=== PATIENT | female | born 1980 | race Caucasian/White ===

== ENCOUNTER 2018-07-09 13:48 | Observation (INO) ==
--- NOTE | 2018-07-09 14:38 | Emergency Department Note ---
Disposition Clinical Impression: Sinus tachycardia, Intractable back pain Sacral fracture, closed Qualifiers: Encounter type: subsequent encounter Zone of sacrum fracture: unspecified portion of sacrum Fracture healing: with routine healing Qualified Code(s): S32.10XD - Unspecified fracture of sacrum, subsequent encounter for fracture with routine healing Disposition: Admitted As Inpatient Condition: Fair Referrals: Liliana Byrne CNP [Primary Care Provider] - Arcenio Koehler MD [Partnered Physician] - Forms: ED Satisfaction Letter, Work/School Release Time of Disposition: 15:16 Back Pain HPI - General Chief Complaint: ED Back Pain/Injury Stated Complaint: Low back injury needs pain meds Time Seen by Provider: 07/09/18 14:06 Source: patient, family Mode of arrival: private vehicle Limitations: no limitations Nursing Notes Reviewed: Yes Vital Signs Reviewed: Yes - History of Present Illness Pt Subjective Complaint: back pain, back injury Onset (ago): day(s) Duration: constant Similar Symptoms Previously: No Location: sacrum, Other (coccyx) Pain Severity: severe Quality: aching Radiation: none Improves with: none Worsens with: walking Context: trauma (sledding accident 4 days ago - went down a hill, hit a dip and then landed on her back, on a large piece of asphalt ) Associated symptoms: Denies: numbness, weakness, difficulty walking, incontinence of bowel/bladder, fever, chills, abdominal pain, dysuria, hematuria Treatments prior to arrival: cold therapy, other medications (flexeril), prescr iption analgesics, other (was seen at [place], then at & by Ortho, then by Dr. Rodo Lambert Physiatry, then at [facility]. ) - Related Data Home Medications Medication Instructions Recorded Confirmed Cyclobenzaprine [Flexeril] 10 mg PO HS 07/04/18 07/04/18 Oxycodone HCl [Roxybond] 30 mg PO Q4H 07/04/18 07/04/18 Previous Rx's Medication Instructions Recorded Cyclobenzaprine [Flexeril] 10 mg PO TID #21 tablet 07/04/18 Allergies Allergy/AdvReac Type Severity Reaction Status Date / Time Amoxicillin Allergy Difficulty Verified 12/25/17 20:20 Breathing Erythromycin Base Allergy Hives Verified 12/25/17 20:20 ibuprofen Allergy Hypertensio Verified 12/25/17 20:20 n sulfamethoxazole Allergy Hives Verified 12/25/17 20:20 [From Bactrim] trimethoprim [From Bactrim] Allergy Hives Verified 12/25/17 20:20 ketorolac [From Toradol] AdvReac Hypertensio Verified 12/25/17 20:20 n All systems ED: reviewed and negative except as stated. Review of Systems: As Per HPI Constitutional: Denies: fever, chills, weakness Cardiovascular: Denies: chest pain, palpitations, dyspnea on exertion, orthopnea, syncope Respiratory: Denies: cough, dyspnea, hemoptysis Gastrointestinal: Reports: constipation ("Chronic"). Denies: abdominal pain, nausea, vomiting, diarrhea Genitourinary: Denies: urgency, dysuria, frequency, hematuria Musculoskeletal: Reports: as per HPI, back pain ("sacrum and coccyx"). Denies: neck pain, joint swelling, arthralgia Integumentary: Denies: abrasion Neurological: Denies: weakness, numbness, paresthesias Hematological/Lymphatic: Denies: easy bleeding, easy bruising Past Medical History - Past Medical History Attestation: Yes The following information was validated with the patient. Source: patient Medical history: Reports: other (Right shoulder pain ) Surgical history: Reports: , cholecystectomy, other (tubal ligation x2) Psychiatric history: Reports: panic disorder [employer] history: Reports: bilateral tubal ligation - Social History Smoking Status: Current every day smoker Smokeless Tobacco Status: No Alcohol use: Reports: none Drug use: Reports: none Physical Exam - General Limitations: no limitations General appearance: alert, in no apparent distress (appears to be in pain) - Head Head exam: atraumatic, normocephalic, normal inspection - Eye Eye exam: Present: normal appearance. Absent: scleral icterus, conjunctival injection, periorbital swelling - ENT ENT exam: mucous membranes moist - Neck Neck exam: Present: normal inspection, full ROM, trachea midline. Absent: tenderness - Chest Chest inspection: Present: normal inspection - Respiratory Respiratory exam: Present: normal lung sounds bilaterally. Absent: respiratory distress - Cardiovascular Cardiovascular exam: Present: normal rhythm, tachycardia, normal heart sounds - Abdominal Exam Abdominal exam: Present: soft, Non-Tender. Absent: distention, guarding, rebound, rigidity, mass - Extremities Exam Extremities exam: Present: normal inspection, normal capillary refill. Absent: tenderness - Neurological Exam Neurological exam: Present: alert, oriented X3, CN II-XII intact, normal gait - Psychiatric Psychiatric exam: Present: normal affect, normal mood - Skin Skin exam: Present: warm, dry, intact, normal color Course Course Narrative: Patient had a sledding accident a few days ago and sustained two fractures - one to the sacrum and one to the coccyx. She is here for pain control. She has been seen by [facility] orthopedist, and physiatry. She was referred to [facility] for eval by Spine Surgery. She had that appointment today. She state s that Dr. Koehler ([facility]) set up the appointment for her and told her that they would be able to determine if her fractures need surgical management. He also told her that he would be able to manage her pain if her fractures do not require surgery. Patient states that she was told today that she would not need surgery. She does have a follow-up appointment with Dr. oKehler, and with her primary care provider next week. She is here because she has run out of pain medication. She states that when she saw the ER physician at [place] on the day of the injury. She was instructed to "double up on her pain medication to help with the pain." She did this for the past several days and now is out of her prescribed pain medication. She takes this for chronic right shoulder pain. The shoulder pain is from a work-related injury and she states that she will be having surgery on it. Review of patient's OAR[facility] report shows that she has only received pain meds from one provider. She received a 30 day supply on June 16. We will treat her pain here in the ED. She will need to contact her PCP for refill as she technically should not be out of meds just yet. Patient has no signs or symptoms concerning for cauda equina syndrome. Neuro exam is normal. Tachycardia is most-likely due to pain and patient states that she has "history of sinus tach." She also states that she is a nurse, thus I feel comfortable that she is accurate about her past medical hx. Patient has follow up arranged. Pain unable to be controlled. Case discussed with Dr. Cuello. He mario's admission. Patient no better after Fentanyl. Nurse reports that patient became very anxious before receiving the fentanyl and her heart rate went up into the 140's. Nurse further states that after they talked about it and the patient's talked to her, patient's heart rate returned to normal. ECG ordered. Heart rate is currently 80. Time is 17:56 Patient resting comfortably. IV discontinued per request of hospitalist. - Reevaluation(s) Reevaluation #1: Patient states that the pain medication is not helping at all. Will try different meds and re-assess. Case discussed with Dr. Cuello. He will eval the patient. Time: 15:19 Reevaluation #2: Dr. Fry recommends pain meds and admission. Patient will be moved to a medical bed. - Consultations Consultation #1: Case discussed with Dr. Landeros - Hospitalist. He requests consult with Dr. Villalobos and labs. Dr. Villalobos pagesirena, labs ordered. Time: 16:15 Consultation #2: Case discussed with Dr. Villalobos. He states that the patient can stay here for pain control and he will consult. Once labs are back will call hospitalist again. Time: 16:30 Vital Signs Temperature 97.9 F 07/09/18 13:50 Pulse Rate 121 07/09/18 13:50 Respiratory Rate 16 07/09/18 13:50 Blood Pressure 149/88 07/09/18 13:50 O2 Sat by Pulse Oximetry 100 07/09/18 13:50 Temperature 97.9 F 07/09/18 13:56 Pulse Rate 141 07/09/18 16:13 Respiratory Rate 20 07/09/18 16:13 Blood Pressure 134/77 07/09/18 16:13 O2 Sat by Pulse Oximetry 99 07/09/18 16:13 Oxygen Delivery Oxygen Delivery Room Air Back Pain/Injury - Medical Records Medical records reviewed: Yes I reviewed the patient's medical records. - Lab Data Lab results reviewed: Yes I reviewed the patient's lab results. Lab results narrative: Laboratory Last Values WBC 8.1 K/mcL (4.3-11.1) 07/09/18 16:16 RBC 4.22 M/mcL (3.82-4.97) 07/09/18 16:16 Hgb 12.7 g/dL (11.5-15.4) 07/09/18 16:16 Hct 38.5 % (35.3-44.9) 07/09/18 16:16 MCV 91.2 fL (83.0-100.0) 07/09/18 16:16 MCH 30.1 pg (28.0-33.3) 07/09/18 16:16 MCHC 33.0 g/dL (31.6-35.5) 07/09/18 16:16 RDW 12.7 % (11.5-14.5) 07/09/18 16:16 Plt Count 226 K/mcL (140-400) 07/09/18 16:16 MPV 10.0 fL (9.4-12.4) 07/09/18 16:16 Immature Gran % 0.2 % (0-4) 07/09/18 16:16 Seg Neutrophils % 57.9 % 07/09/18 16:16 Lymphocytes % 31.2 % 07/09/18 16:16 Monocytes % 8.8 % 07/09/18 16:16 Eosinophils % 1.7 % 07/09/18 16:16 Basophils % 0.2 % 07/09/18 16:16 Neutrophils # 4.7 K/mcL (1.6-8.9) 07/09/18 16:16 Lymphocytes # 2.5 K/mcL (0.6-4.6) 07/09/18 16:16 Monocytes # 0.7 K/mcL (0.0-1.3) 07/09/18 16:16 Eosinophils # 0.1 K/mcL (0.0-0.6) 07/09/18 16:16 Basophils # 0.0 K/mcL (0.0-0.2) 07/09/18 16:16 Sodium 139 mEq/L (136-145) 07/09/18 16:16 Potassium 4.1 mEq/L (3.5-5.1) 07/09/18 16:16 Chloride 114 mEq/L (98-107) H 07/09/18 16:16 Carbon Dioxide 22 mEq/L (23-29) L 07/09/18 16:16 BUN 9 mg/dL (6-20) 07/09/18 16:16 Creatinine 0.71 mg/dL (0.60-1.20) 07/09/18 16:16 Est GFR ( Amer) > 60 (> 60) 07/09/18 16:16 Est GFR (Non-Af Amer) > 60 (> 60) 07/09/18 16:16 BUN/Creatinine Ratio 13 (6-26) 07/09/18 16:16 Glucose 120 mg/dL (70-105) H 07/09/18 16:16 Calculated Osmolality 288 (280-300) 07/09/18 16:16 Calcium 8.5 mg/dL (8.6-10.3) L 07/09/18 16:16 Result diagrams: 07/09/18 16:16 07/09/18 16:16 Lab Results 07/09/18 07/09/18 Range/Units 16:16 16:16 WBC 8.1 (4.3-11.1) K/mcL RBC 4.22 (3.82-4.97) M/mcL Hgb 12.7 (11.5-15.4) g/dL Hct 38.5 (35.3-44.9) % MCV 91.2 (83.0-100.0) fL MCH 30.1 (28.0-33.3) pg MCHC 33.0 (31.6-35.5) g/dL RDW 12.7 (11.5-14.5) % Plt Count 226 (140-400) K/mcL MPV 10.0 (9.4-12.4) fL Immature Gran % 0.2 (0-4) % Seg Neutrophils % 57.9 % Lymphocytes % 31.2 % Monocytes % 8.8 % Eosinophils % 1.7 % Basophils % 0.2 % Neutrophils # 4.7 (1.6-8.9) K/mcL Lymphocytes # 2.5 (0.6-4.6) K/mcL Monocytes # 0.7 (0.0-1.3) K/mcL Eosinophils # 0.1 (0.0-0.6) K/mcL Basophils # 0.0 (0.0-0.2) K/mcL Sodium 139 (136-145) mEq/L Potassium 4.1 (3.5-5.1) mEq/L Chloride 114 H (98-107) mEq/L Carbon Dioxide 22 L (23-29) mEq/L BUN 9 (6-20) mg/dL Creatinine 0.71 (0.60-1.20) mg/dL Est GFR ( Amer) > 60 (> 60) Est GFR (Non-Af Amer) > 60 (> 60) BUN/Creatinine Ratio 13 (6-26) Glucose 120 H (70-105) mg/dL Calculated Osmolality 288 (280-300) Calcium 8.5 L (8.6-10.3) mg/dL - Radiology Data Radiology results reviewed: Yes I reviewed the patient's radiology results. CT from [place] reviewed
[2018-07-09] MEDS ORDERED: Ondansetron ODT 4 MG TAB.RAPDIS SL ONE (14:43)
[2018-07-09] MEDS ORDERED: *HR* HYDROmorphone (PF) 1 MG/ML SYRINGE IM ONE (14:43)
[2018-07-09] MEDS ORDERED: 0.9 % Sodium Chloride 1,000 ML IVC ONE (15:20)
[2018-07-09] MEDS ORDERED: *HR* FentaNYL (PF) 100 MCG/2 ML VIAL IVP ONE (15:25)
--- NOTE | 2018-07-09 15:40 | Emergency Department Note ---
Disposition Clinical Impression: Coccyx pain Disposition: Admitted As Inpatient Condition: Fair Referrals: Liliana Byrne CNP [Primary Care Provider] - Arcenio Koehler MD [Partnered Physician] - Forms: ED Satisfaction Letter, Work/School Release General Adult HPI - General Chief complaint: ED Back Pain/Injury Stated complaint: Low back injury needs pain meds Time Seen by Provider: 07/09/18 14:06 Source: patient, family Mode of arrival: private vehicle Limitations: no limitations Nursing Notes Reviewed: Yes Vital Signs Reviewed: Yes - History of Present Illness HPI Narrative: ED attending attestation note: I examined this patient and my medical decision-making was reviewed with the emergency medicine physician enrichment assistant Aparna Evans. I agree with the d ocumented findings, disposition and treatment plan as described except to the extent set forth below. Briefly: 37-year-old female involved in a sledding injury. Patient was evaluated in our side emergency department where she was diagnosed with sacral and coccygeal fracture. On which may or may not require orthopedic intervention but not emergently. She follow-up in the outpatient sports medicine clinic and was told that it did not necessarily require operative management at least emergently. Patient is normally on pain management for her right shoulder injury. She is taking Percocet 30 mg twice a day she is when out of this medicine. Because of the increased pain from her back and she opted her dose per her primary care provider's recommendations. Patient is afebrile stable vital signs she is in moderate pain issue will be managed with parenteral narcotics here she will be admitted for pain control and she will have orthopedic consultation after being admitted to the hospitalist service. Admission disposition pending. Pain Scale: 8 - Related Data Home Medications Medication Instructions Recorded Confirmed Cyclobenzaprine [Flexeril] 10 mg PO HS 07/04/18 07/04/18 Oxycodone HCl [Roxybond] 30 mg PO Q4H 07/04/18 07/04/18 Previous Rx's Medication Instructions Recorded Cyclobenzaprine [Flexeril] 10 mg PO TID #21 tablet 07/04/18 Allergies Allergy/AdvReac Type Severity Reaction Status Date / Time Amoxicillin Allergy Difficulty Verified 12/25/17 20:20 Breathing Erythromycin Base Allergy Hives Verified 12/25/17 20:20 ibuprofen Allergy Hypertensio Verified 12/25/17 20:20 n sulfamethoxazole Allergy Hives Verified 12/25/17 20:20 [From Bactrim] trimethoprim [From Bactrim] Allergy Hives Verified 12/25/17 20:20 ketorolac [From Toradol] AdvReac Hypertensio Verified 12/25/17 20:20 n Constitutional: Denies: fever, chills, weakness Cardiovascular: Denies: chest pain, palpitations, dyspnea on exertion, orthopnea, syncope Respiratory: Denies: cough, dyspnea, hemoptysis Gastrointestinal: Reports: constipation ("Chronic"). Denies: abdominal pain, nausea, vomiting, diarrhea Genitourinary: Denies: urgency, dysuria, frequency, hematuria Musculoskeletal: Reports: as per HPI, back pain ("sacrum and coccyx"). Denies: neck pain, joint swelling, arthralgia Integumentary: Denies: abrasion Neurological: Denies: weakness, numbness, paresthesias Hematological/Lymphatic: Denies: easy bleeding, easy bruising Past Medical History - Past Medical History Medical history: Reports: other (Right shoulder pain ) Surgical history: Reports: , cholecystectomy, other (tubal ligation x2) Psychiatric history: Reports: panic disorder [employer] history: Reports: bilateral tubal ligation - Social History Smoking Status: Current every day smoker Smokeless Tobacco Status: No Alcohol use: Reports: none Drug use: Reports: none Physical Exam - General Limitations: no limitations General appearance: alert, in no apparent distress (appears to be in pain) Course Vital Signs Temperature 97.9 F 07/09/18 13:50 Pulse Rate 121 07/09/18 13:50 Respiratory Rate 16 07/09/18 13:50 Blood Pressure 149/88 07/09/18 13:50 O2 Sat by Pulse Oximetry 100 07/09/18 13:50 Temperature 97.9 F 07/09/18 13:56 Pulse Rate 121 07/09/18 13:56 Respiratory Rate 16 07/09/18 13:56 Blood Pressure 149/88 07/09/18 13:56 O2 Sat by Pulse Oximetry 100 07/09/18 13:56 Oxygen Delivery Oxygen Delivery Room Air
[2018-07-09 17:04] LABS: Basophils % 0.2 %; Eosinophils # 0.1 K/mcL (0.0-0.6); Eosinophils % 1.7 %; Hematocrit 38.5 % (35.3-44.9); Hemoglobin 12.7 g/dL (11.5-15.4); Immature Granulocytes % 0.2 % (0-4); Lymphocytes # 2.5 K/mcL (0.6-4.6); Lymphocytes % 31.2 %; Mean Corpuscular Hemoglobin 30.1 pg (28.0-33.3); Mean Corpuscular Volume 91.2 fL (83.0-100.0); Monocytes # 0.7 K/mcL (0.0-1.3); Monocytes % 8.8 %; Neutrophils # 4.7 K/mcL (1.6-8.9); Platelet Count 226 K/mcL (140-400); Red Blood Count 4.22 M/mcL (3.82-4.97); Red Cell Distribution Width 12.7 % (11.5-14.5); Segmented Neutrophils % 57.9 %
[2018-07-09 17:17] LABS: BUN/Creatinine Ratio 13 (6-26); Blood Urea Nitrogen 9 mg/dL (6-20); Calcium 8.5 mg/dL (8.6-10.3); Carbon Dioxide 22 mEq/L (23-29); Chloride 114 mEq/L (98-107); Glucose 120 mg/dL (70-105); Osmolality,Calculated 288 (280-300); Potassium 4.1 mEq/L (3.5-5.1); Sodium 139 mEq/L (136-145); eGFR For Non-African Americans > 60 (> 60)
[2018-07-09] MEDS ORDERED: *HR* HYDROmorphone (PF) 1 MG/ML SYRINGE IVP ONE ×2 (17:44→18:54)
[2018-07-09] MEDS ORDERED: OXYCODONE Oral CONC 10 MG/0.5 ML ORAL.SYG SL ONE (18:17)
--- NOTE | 2018-07-09 18:22 | Internal Med History&Physical ---
Date of Encounter: 07/09/18 Time of Encounter: 18:49 Internal Medicine - H&P: HPI History of present illness: Ms. Crawley is a 37 year old female with recent sacral and coccyx minimal displaced fractures presents for worsening pain. She had a sledding accident 5 days ago and was seen by [facility] at that time. She was referred to [facility] for evaluation by Spine Surgery. Per patient, that appointment was today and states that she was told she does not need surgery. There is scheduled follow-up appointments but patient has ran out of pain medication and so decided to come in. She takes chronic pain medication for shoulder pain. Lumbar pain is located at sacrum and has not progressed since accident. She has some left leg tingling, but denies bowel/bladder issues, denies saddle anesthesia. Denies lower extremity weakness. In the ED she had basic labs that were unremarkable. She did have episode of asymptomatic tachycardia with HR 120-140s, which resolved without any medical intervention. She is chest pain free, denies shortness of breath. She has known history of sinus tachycardia. Past Med Surg Social Fam HX - Past Medical History Medical history: other (Right shoulder pain ) Additional medical history: chronic pvcs. right shoulder pain. 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 work Psychiatric history: panic disorder - Past Surgical History Surgical History: , cholecystectomy, other (tubal ligation x2) Additional surgical history: leep procedure, liver biopsy, CYST REMOVED FROM RT HAND - Social History Smoking Status: Current every day smoker Smokeless Tobacco Status: No Alcohol use: none Drug use: none Internal Medicine - H&P: Meds Cyclobenzaprine [Flexeril] 10 mg PO HS 07/04/18 [History] Cyclobenzaprine [Flexeril] 10 mg PO TID #21 tablet 07/04/18 [Rx] Oxycodone HCl [Roxybond] 30 mg PO Q4H 07/04/18 [History] Allergy/AdvReac Type Severity Reaction Status Date / Time Amoxicillin Allergy Difficulty Verified 12/25/17 20:20 Breathing Erythromycin Base Allergy Hives Verified 12/25/17 20:20 ibuprofen Allergy Hypertensio Verified 12/25/17 20:20 n sulfamethoxazole Allergy Hives Verified 12/25/17 20:20 [From Bactrim] trimethoprim [From Bactrim] Allergy Hives Verified 12/25/17 20:20 ketorolac [From Toradol] AdvReac Hypertensio Verified 12/25/17 20:20 n All Systems PM: A 10-system review of systems was performed and is negative for pertinent findings except as documented above in the HPI. - Constitutional Vitals: Temp Pulse Resp BP Pulse Ox 97.9 F 141 20 134/77 99 07/09/18 13:56 07/09/18 16:13 07/09/18 16:13 07/09/18 16:13 07/09/18 16:13 General appearance: Present: A&O X 3, no acute distress Exam: . - Head Head exam: Present: atraumatic, normocephalic - Eye Eye exam: Present: PERRL, conjuntiva pink, sclera anicteric Pupils: Present: PERRL - Neck Neck exam general surgery: Present: supple, trachea midline. Absent: lymphadenopathy - Respiratory Respiratory exam: Present: CTAB. Absent: accessory muscle use, rales, rhonchi, wheezes - Cardiovascular Cardiovascular exam: Present: RRR, +S1, +S2. Absent: diastolic murmur, gallop, rubs, systolic murmur - GI/Abdominal GI/Abdominal exam: Present: normal bowel sounds, soft, no peritoneal signs. Absent: distended, tenderness - Rectal Rectal exam: Present: deferred - Extremities Exam Extremities exam: Present: warm, radial pulses palpable and symmetrical. Absent: calf tenderness, cyanotic, pedal edema - Back Exam Back exam: Present: normal inspection, paraspinal tenderness, vertebral tenderness. Absent: CVA tenderness (L), CVA tenderness (R), full ROM (limited exam due to pain), muscle spasm, rash noted - Neurological Exam Neurological exam: Present: CN II-XII intact, oriented X3, reflexes normal, no focal deficits, strengths equal and symetr throughout. Absent: pronater drift, facial droop, speech deficit - Skin Skin exam: Present: dry, intact Internal Med - H&P Results - Labs CBC & Chem 7: 07/09/18 16:16 07/09/18 16:16 Labs: Short CBC 07/09/18 Range/Units 16:16 WBC 8.1 (4.3-11.1) K/mcL Hgb 12.7 (11.5-15.4) g/dL Hct 38.5 (35.3-44.9) % Plt Count 226 (140-400) K/mcL Neutrophils # 4.7 (1.6-8.9) K/mcL BMP 07/09/18 16:16 Sodium 139 Potassium 4.1 Chloride 114 H Carbon Dioxide 22 L BUN 9 Creatinine 0.71 Glucose 120 H Calcium 8.5 L - Assessment and plan (1) Intractable back pain Current Visit: Yes Status: Acute Assessment and plan: Patient has known history of recent mildly displaced fracture of lower sacrum and coccyx on 07/04/17. She is being followed in outpatient setting with pain medication that patient states is refractory to pain medication. - Obtain repeat CT to eval if any worsening of fracture - Pain control with sL oxycodone prn. - Ortho consulted in ED, recommendations appreciated. (2) Sacral fracture, closed Current Visit: Yes Status: Acute Assessment and plan: Plan as above. Qualifiers: Encounter type: subsequent encounter Zone of sacrum fracture: unspecified portion of sacrum Fracture healing: with routine healing Qualified Code(s): S32.10XD - Unspecified fracture of sacrum, subsequent encounter for fracture with routine healing (3) Sinus tachycardia Current Visit: Yes Status: Acute Assessment and plan: Patient has known history of sinus tachycardia Echocardiogram from 2014 showed unremarkable. Patient at bedside HR was NSR at 80s bpm EKG in ED reviewed, was NSR again with HR in 80s, no ST/T wave changes. Likely pain related, but if this reoccurs, will obtain Echo. - Check TSH, UDS - Lopressor 5 mg IV prn HR > 100. - Time Spent With Patient Total time spent is greater than 50% in coordination of care (as documented) at patient's floor/unit and/or counseling patient:
[2018-07-09 18:25] LABS: Bilirubin,Urine Negative (Negative); Blood,Urine Negative (Negative); Clarity,Urine Clear (Clear); Color,Urine Yellow (Yellow); Glucose,Urine (UA) Normal (Normal); Ketones,Urine Negative (Negative); Leukocyte Esterase,Urine Negative (Negative); Nitrite,Urine Negative (Negative); Protein,Urine Negative (Neg-Trace); Specific Gravity,Urine 1.018 (1.010-1.025); Urobilinogen,Urine Normal (Normal)
[2018-07-09] MEDS ORDERED: Naloxone 0.4 MG/ML INJ IVP PRN (18:25)
[2018-07-09] MEDS ORDERED: traMADol 50 MG TABLET PO PRN (18:40)
[2018-07-09] MEDS ORDERED: *HR* OxyCODONE Immed Rel 5 MG TABLET PO PRN (18:40)
[2018-07-09] MEDS ORDERED: *HR* Metoprolol 5 MG/5 ML VIAL IVP PRN (18:45)
[2018-07-09] MEDS ORDERED: *HR* HYDROmorphone 2 MG/ML SYRINGE ONE (19:00)
[2018-07-09 19:35] LABS: Amphetamine Screen,Urine Negative ng/mL (Cutoff=1000); Barbiturate Screen,Urine Negative ng/mL (Cutoff=200); Benzodiazepines Screen,Urine Negative ng/mL (Cutoff=200); Cannabinoid Screen,Urine Negative ng/mL (Cutoff = 50); Cocaine Screen,Urine Negative ng/mL (Cutoff= 300); Opiate Screen,Urine Positive ng/mL (Cutoff=300); Phencyclidine Screen,Urine Negative ng/mL (Cutoff=25)
[2018-07-09] MEDS: *HR* OxyCODONE Immed Rel 5 MG TABLET PO PRN (20:52)
[2018-07-10] MEDS: *HR* OxyCODONE Immed Rel 5 MG TABLET PO PRN ×2 (03:30→09:23)
[2018-07-10 08:28] LABS: Thyroid Stimulating Hormone 2.201 mcIU/mL (0.340-5.600)
--- NOTE | 2018-07-10 10:38 | Discharge Summary ---
<Herber Tomlinson - Last Filed: 07/10/18 11:58> - NOTES TO OUTPATIENT PROVIDER Notes to Outpatient Provider: Ms. Crawley was admitted to the hospital on 07/09 for worsening pain related to her recent sacral and coccyx fractures. She was in a sledding incident approximately 1 week ago. Repeat lumbar spine CT was negative. Orthopedic surgery was consulted and recommended follow up this next week. At time of discharge pt was able to ambulate throughout the hallways with a walker. Pt was discharged with 3 days supply of Oxycodone 30mg. Pt was also noted to have sinus tachycardia intermittently during admission with HR as high as 141. EKGs showed normal sinus rhythm with no ST segment changes. TSH was within no rmal limits. Likely pain related. Recommend follow up with PCP, if persistent may need follow up echo. Orders not resulted at time of discharge: Pending orders 07/09/18 17:48 ECG 12 lead ECG [ECG] Stat Date of Encounter: 07/10/18 Time of Encounter: 10:33 - Discharge Diagnosis (1) Sacral fracture, closed Priority: Secondary Status: Acute Assessment and Plan: Plan as above Qualifiers: Encounter type: subsequent encounter Zone of sacrum fracture: unspecified portion of sacrum Fracture healing: with routine healing Qualified Code(s): S32.10XD - Unspecified fracture of sacrum, subsequent encounter for fracture with routine healing (2) Sinus tachycardia Priority: Secondary Status: Acute Assessment and Plan: Patient has known history of sinus tachycardia Echocardiogram from 2014 was unremarkable. At bedside HR was NSR at 80s bpm EKG from ED reviewed: NSR with HR in 80s, no ST/T segment changes. TSH within normal limits UDS significant only for opioids which is appropriate with recent pain meds for fractures Likely related to pain Follow up with PCP (3) Intractable back pain Priority: Primary Status: Acute Assessment and Plan: Patient has known history of recent mildly displaced fracture of lower sacrum and coccyx on 07/04/17 Currently being followed in outpatient setting with pain medication Pt states pain is refractory to pain medication Repeat Lumbar spine CT was negative Pt able to ambulate throughout hallways with walker Ortho surgery consulted - recommended outpatient follow up early next week [facility] report reviewed Discharged with 3 day supply of Oxycodone 30mg Q4HR PRN for pain Hospital course: Ms. Crawley is a 37 year old female who was admitted to the hospital on 07/09 for worsening pain related to her recent sacral and coccyx fractures. She was in a sledding incident approximately [address] of the pelvis on 07/04 was significant for a mildly displaced fractures of both the sacrum and coccyx. Pt was discharged home from ED with pain medications. She returned to the ED on 07/09 for intractable pain despite pain medications. Repeat lumbar spine CT was negative. Orthopedic surgery was consulted and recommended follow up this next week. At time of discharge pt was able to ambulate throughout the hallways with a walker. Pt was discharged with 3 days supply of Oxycodone 30mg. Pt was also noted to have sinus tachycardia intermittently during admission with HR as high as 141. EKGs showed normal sinus rhythm with no ST segment changes. TSH was within normal limits. Likely pain related. Recommend follow up with PCP, if persistent may need follow up echo. Discharge discussed with: patient, family, nurse, philatelic consultant - Time Spent with Patient Total time spent providing and/or coordinating discharge services: - Discharge Medications Prescriptions: Oxycodone HCl [Roxybond] 30 mg PO Q4H 3 Days #18 tablet.orl Home Medications: Cyclobenzaprine [Flexeril] 10 mg PO HS 07/04/18 [History] Cyclobenzaprine [Flexeril] 10 mg PO TID #21 tablet 07/04/18 [Rx] Oxycodone HCl [Roxybond] 30 mg PO Q4H 3 Days #18 tablet.orl 07/10/18 [Rx] Allergies/Adverse Reactions: Allergy/AdvReac Type Severity Reaction Status Date / Time Amoxicillin Allergy Difficulty Verified 12/25/17 20:20 Breathing Erythromycin Base Allergy Hives Verified 12/25/17 20:20 ibuprofen Allergy Hypertensio Verified 12/25/17 20:20 n sulfamethoxazole Allergy Hives Verified 12/25/17 20:20 [From Bactrim] trimethoprim [From Bactrim] Allergy Hives Verified 12/25/17 20:20 ketorolac [From Toradol] AdvReac Hypertensio Verified 12/25/17 20:20 n Date of admission: 07/09/18 17:50 Primary care physician: Liliana Bryne Consults: 07/09/18 19:07 Consult to Orthopedic Surgery [CONS] Routine Consulting Provider: [facility] Reason for Consult: back pain Call Completed: Yes Discharging clinician: Herber Tomlinson - Constitutional Vitals: Temp Pulse Resp BP Pulse Ox 98.3 F 90 14 129/83 98 07/10/18 07:53 07/10/18 07:53 07/10/18 07:53 07/10/18 07:53 07/10/18 07:53 General appearance: Present: cooperative, mild distress, A&O X 3, answers questions appropriately Exam: General: well developed, well nourished female in mild distress due to pain Head: normocephalic and atraumatic Eyes: PERRL, EOMI, sclera anicteric, conjunctiva pink Neck: supple, trachea midline Lungs: CTA bilaterally. non-labored breathing. no wheezes, rales, or rhonchi Heart: RRR +S1 +S2 no murmurs, clicks, or rubs Extremities: warm, radial pulses palpable and symmetrical. no edema or cyanosis Neuro: A&OX3. no focal deficits. no speech difficulty or abnormality Skin: warm, dry, intact - Patient Status Disposition: Home, Self-Care Condition: Fair Functional capacity at discharge: uses cane/walker Overall status at discharge: patient is progressing back to baseline - Discharge Instructions Follow Up With: Liliana Byrne CNP [Primary Care Provider] - Surendra Villalobos Jr, MD [Partnered Physician] - Additional Instructions: Follow-up appointments: If there is not an appointment listed below, please call your physician and schedule a follow-up appointment. If you have congestive heart failure and your symptoms return, make an appointment with your physician. Medication List: Carry an up to date list of medications you are taking at all time. We have given you an updated medication list including any new medications that you have been prescribed. Please provide that list to your primary provider Symptoms: If your condition changes or you experience any of the following symptoms, notify your physician immediately: Unusual or worsening pain, fever, persistent nausea and vomiting, bleeding, increase in swelling (especially in your legs), sudden weight gain, extreme dizziness, chest pain, increased drainage or redness from a wound or incision. Go to the emergency department if you experience a problem with breathing. Weights: If you have a history of swelling or shortness of breath, weigh yourself daily and notify your physician if you have a weight gain of two or more pounds in one day or 5 or more pounds in a week. If you experience any of the warning signs for stroke: Sudden numbness or weakness of the face, arm or leg; especially on one side of the body, sudden confusion, trouble speaking or understanding, sudden trouble seeing in one or both eyes, sudden trouble walking, dizziness, loss of balance or coordination, sudden sever headache with no cause; Call 911 or go to the emergency room. Stroke is a medical emergency. Some risk factors for stroke: Age, cigarette smoking, diabetes, excessive alcohol consumption, family history, high blood pressure, overweight, physical inactivity, prior stroke, heart attack, diagnosis of carotid artery stenosis or other artery disease. If you smoke, STOP: Smoking or tobacco use significantly increases your risk of heart and lung disease. Your chance of disease greatly increases if you continue to smoke. For more information, call the [employer] quit line for smoking cessation 8-268-NOWX-NOW ( ) - Diet and Activity Activity: ambulate only with your walker, as per physical therapy, increase a ctivity as tolerated, resume usual activities as tolerated Diet: advance to your usual diet <Anaya Julien - Last Filed: 07/10/18 17:10> Orders not resulted at time of discharge: Pending orders 07/09/18 17:48 ECG 12 lead ECG [ECG] Stat Date of Encounter: 07/10/18 - Discharge Diagnosis (1) Sacral fracture, closed Status: Acute Qualifiers: Encounter type: subsequent encounter Zone of sacrum fracture: unspecified portion of sacrum Fracture healing: with routine healing Qualified Code(s): S32.10XD - Unspecified fracture of sacrum, subsequent encounter for fracture with routine healing (2) Sinus tachycardia Status: Acute (3) Intractable back pain Status: Acute Hospital course: Ms. Crawley is a 37 year old female - Time Spent with Patient Total time spent providing and/or coordinating discharge services: Date of admission: 07/09/18 17:50 Primary care physician: Liliana Byrne Consults: 07/09/18 19:07 Consult to Orthopedic Surgery [CONS] Routine Consulting Provider: [facility] Reason for Consult: back pain Call Completed: Yes - Constitutional Vitals: Temp Pulse Resp BP Pulse Ox 98.6 F 95 14 119/77 98 07/10/18 11:35 07/10/18 11:35 07/10/18 11:35 07/10/18 11:35 07/10/18 11:35 - Attending Attestation I examined this patient and my medical decision-making was reviewed with the Resident Physician. I agree with the documented findings, disposition and treatment plan as described except to the extent set forth below.
[2018-07-10 11:36] VITALS: BP 119/77
--- NOTE | 2018-07-12 16:30 | Electrocardiograph Report ---
[address] [address] Test Date: 2018-07-09 Pat Name: Marilyn Crawley Department: EXAM3 Room: [facility] Gender: F Human Services Program Specialist: : [id number] Requested By: Aparna Evans Order Number: [id number] Reading MD: Braxton Bruce Measurements Intervals [place] Rate: 79 P: 44 [place]: 159 QRS: 72 QRSD: 81 T: 55 QT: 375 QTc: 430 Interpretive Statements Sinus rhythm Electronically Signed On 07-12-2018 16:29:38 EST by Braxton Bruce
== END 2018-07-10 12:06 | disposition home or self-care (01) ==
LOC: 3NENU 13:48 → EMEROOARM 13:48 → SUATTDRO 17:50 → 3NENU 19:10
PROVIDERS: ADMIT Hospitalist; ATTEND Student in an Organized Health Care Education/Training Program